=== PATIENT | male | born 1990 | race Hispanic/Latino ===

== ENCOUNTER 2018-07-02 13:52 | Emergency (ER) | payer SELFPAY ==
--- NOTE | 2018-07-02 14:15 | Emergency Department Report ---
Chief Complaint: Extremity Injury, Upper Stated Complaint: RT HAND INJURY - HPI History of Present Illness: INJURY TO HAND HIT WOOD 2 DAYS AGO VSS N/V INTACT MSE screening note: Focused history and physical exam performed. Due to findings the following was ordered: ED Disposition for MSE Condition: Stable
[2018-07-02 14:26] VITALS: BP 134/80
[2018-07-02] MEDS ORDERED: IBUPROFEN PO ONE (14:58)
--- NOTE | 2018-07-02 14:58 | Emergency Department Report ---
Upper Extremity - HPI Chief Complaint: Extremity Injury, Upper Stated Complaint: RT HAND INJURY Time Seen by Provider: 07/02/18 14:14 Upper Extremity: Right Hand (patient he reports that he accidentally hit his right hand on a piece of wood and he is having pain and swelling. Pain is 6 out of 10 and worse with movement. It feels achy. He said this happened about 4 days ago. Denies any numbness or tingling.) Occurred When: 4 Days Mechanism: Hit with Object Severity: moderate Symptoms: Yes Pain with Movement (right hand 6/10), Yes Limited Range of Movement (pain with range of motion to right hand), Yes Weakness (right hand), Yes Swelling (right hand), No Deformity, No Numbness, No Bruising/Ecchymosis, No Laceration or Abrasion Other History: This is a 27-year-old male here for pain to his right hand after he accidentally bumped into a piece of wood with his right hand. He reports that his right hand is weaker than left and his pain is 6 out of 10 but no numbness or tingling. Denies any laceration or bruising to his hand. Pain is achy worse with movement. [id number] pain medication taken without any relief. ED Review of Systems ROS: Stated complaint: RT HAND INJURY Other details as noted in HPI Constitutional: denies: chills, fever Respiratory: denies: cough, shortness of breath, wheezing Cardiovascular: denies: chest pain, palpitations, edema, syncope Gastrointestinal: denies: nausea, vomiting Musculoskeletal: joint swelling, arthralgia. denies: back pain, myalgia Skin: denies: rash Neurological: weakness (right hand). denies: headache, numbness, paresthesias, abnormal gait, vertigo ED Past Medical Hx - Past Medical History Previous Medical History?: No - Surgical History Past Surgical History?: No - Family History Family history: no significant - Social History Smoking Status: Current Every Day Smoker Substance Use Type: Alcohol - Medications Home Medications: Home Medications Medication Instructions Recorded Confirmed Last Taken Type Acetaminophen/Codeine [Tylenol 1 tab PO Q6H PRN #14 tab 07/02/18 Unknown Rx /Codeine # 3 tab] Ibuprofen [Motrin] 800 mg PO Q8HR PRN #12 tablet 07/02/18 Unknown Rx Upper Extremity Exam - Exam General: Vital signs noted. No distress. Alert and acting appropriately. This is a 27-year-old male well-nourished well-developed in no acute distress. Head and Torso: No HEENT Abnormality, No Neck Tenderness, No Chest/Lungs Abnormality, No Abdominal Tenderness, No Back Tenderness Shoulder Exam: Yes Normal Range of Motion in Shoulder, No Shoulder Tenderness, No Clavicle Tenderness, No Shoulder Deformity, No AC Joint Tenderness Arm Exam: No Arm/Humerus Tenderness, No Arm Deformity Elbow: Yes Normal Range of Motion in Elbow, No Elbow Tenderness, No Elbow Deformity Forearm: No Forearm Tenderness, No Forearm Deformity, No Pain with Pronation, No Pain with Supination Wrist: Yes Normal ROM in Wrist, No Wrist Tenderness, No Wrist Deformity, No Snuffbox Tenderness, No Pain with Axial Thumb Compression Hand: Yes Hand Tenderness (right dorsum of hand tenderness to palpate at fifth metacarpal bone area with indentation.), Yes Hand Deformity (indentation to right fifth metacarpal bone area on the right hand), No Digit Tenderness, No Normal ROM in Digit(s) (limited range of motion to right hand. He reports pain with movement), No Digit(s) Deformity, No Tendon Dysfunction CMS Exam: Yes Normal Distal Pulses (+2 and abundant pulses radial ulnar), Yes Normal Capillary Refill (less than 2 seconds), Yes Normal Distal Sensation (patient with good color, sensation and movement and temperature to extremities.), No Broken Skin ED Course Vital Signs 07/02/18 14:24 Temperature 98.1 F Pulse Rate 76 Respiratory 18 Rate Blood Pressure 134/80 [Right] O2 Sat by Pulse 98 Oximetry - Reevaluation(s) Reevaluation #1: 07/02/18 15:27 Patient given Motrin 800 mg by mouth for pain. Please see procedure note for details and splinted 07/03/18 00:33 Reevaluation #2: 07/02/18 16:01 Patient mom came to be the residential driver and he was given Percocet 5/325 mg 2 tablets by mouth for pain management. When checked and he has good color, sensation temperature and movement to fingers of right hand. - Orthopedic Splinting/Casting Injury #1 Side: right Upper Extremity Injury Location: hand Upper Extremity Immobilizer: ulnar gutter Additional Comments: Status post splint check patient has good color, movement temperature and sensation to fingers of right hand. ED Medical Decision Making - Radiology Data Radiology results: report reviewed X-ray right hand dictated radiologist's report. Please see report below. Findings [facility] [address] [place] [address] XRay Report Signed Patient: IDANIA GIL MR#: [id number] : 1990 Acct:[id number] Age/Sex: 27 / M ADM Date: 07/02/18 Loc: ED Attending Dr: Ordering Physician: RITU GIBBONS Date of Service: 07/02/18 Procedure(s): XR hand 3+V RT Accession Number(s): [id number] cc: RITU GIBBONS Fluoro Time In Minutes: FINAL REPORT EXAM: XR HAND 3+V RT HISTORY: HAND PAIN TECHNIQUE: PA, oblique and lateral radiographs of the right hand. PRIORS: None. FINDINGS: There is an acute, oblique, intra-articular fracture of the right 5th metacarpal head. There is mild anterior angulation. No dislocation. Normal mineralization. There is soft tissue swelling along the medial aspect of the right hand. IMPRESSION: Acute right 5th metacarpal fracture. Transcribed By: MG Dictated By: MICHELLE OLIVER MD Electronically Authenticated By: MICHELLE OLIVER MD Signed Date/Time: 07/02/18 1520 DD/ 18 TD/TT: 07/02/18 151 - Medical Decision Making This is a 27-year-old male here for injury to right hand 4 days ago. X-ray confirms the patient has right fifth metacarpal bone fracture. Patient was given Motrin initially for pain which did not completely relieve his pain so when his residential driver came he was given additional Percocet 5/325 mg 2 tablets by mouth shop to pain. He is referred to the procedure note for splinting. Vital signs stable he is afebrile and discharged home in stable condition with prescription for Motrin, Tylenol 3 and to follow-up with orthopedic doctor and he voiced understanding. - Differential Diagnosis fx, dislocation, contusion, MSK pain Critical care attestation.: If time is entered above; I have spent that time in minutes in the direct care of this critically ill patient, excluding procedure time. ED Disposition Clinical Impression: Arthralgia of right hand Metacarpal bone fracture Qualifiers: Encounter type: initial encounter Metacarpal bone: fifth Fracture type: closed Metacarpal location: neck Fracture alignment: nondisplaced Laterality: right Qualified Code(s): S62.366A - Nondisplaced fracture of neck of fifth metacarpal bone, right hand, initial encounter for closed fracture Disposition: TO HOME OR SELFCARE Is pt being admited?: No Does the pt Need Aspirin: No Condition: Stable Instructions: Splint Care (ED), Arthralgia (ED), Boxer Fracture (ED), RICE Therapy (ED) Additional Instructions: Please follow up with orthopedist as instructed. Call on Wednesday to schedule an appointment for visit in 2-3 days Take Tylenol 3 for severe pain but please do not drive or operate heavy machinery while taking this medication Patent Motrin for mild to moderate pain. Please see discharge instruction in Rice therapy and splint care Prescriptions: Acetaminophen/Codeine [Tylenol /Codeine # 3 tab] 1 tab PO Q6H PRN #14 tab PRN Reason: moderate to severe pain Ibuprofen [Motrin] 800 mg PO Q8HR PRN #12 tablet PRN Reason: pain Referrals: [facility] [Provider Group] - 2-3 Days ANDERSON RIVERA MD [Staff Physician] - 2-3 Days Forms: Accompanied Note, Work/School Release Form(ED)
--- NOTE | 2018-07-02 15:20 | XRay Report ---
FINAL REPORT EXAM: XR HAND 3+V RT HISTORY: HAND PAIN TECHNIQUE: PA, oblique and lateral radiographs of the right hand. PRIORS: None. FINDINGS: There is an acute, oblique, intra-articular fracture of the right 5th metacarpal head. There is mild anterior angulation. No dislocation. Normal mineralization. There is soft tissue swelling along the medial aspect of the right hand. IMPRESSION: Acute right 5th metacarpal fracture.
[2018-07-02] MEDS ORDERED: PERCOCET 5/325 PO ONE (15:52)
== END 2018-07-02 15:59 | disposition home or self-care (01) ==
LOC: ED 13:52
DX: S62.396A Other fracture of fifth metacarpal bone, right hand, initial encounter for closed fracture (principal); F17.200 Nicotine dependence, unspecified, uncomplicated; W22.8XXA Striking against or struck by other objects, initial encounter; Y93.89 Activity, other specified; Y92.89 Other specified places as the place of occurrence of the external cause; Y99.8 Other external cause status

== ENCOUNTER 2018-07-23 18:16 | Emergency (ER) | payer OTHER ==
[2018-07-23 18:30] VITALS: BP 168/96
--- NOTE | 2018-07-23 18:46 | Emergency Department Report ---
Chief Complaint: Extremity Injury, Lower Stated Complaint: L KNEE/HAND INJURY Time Seen by Provider: 07/23/18 18:44 - HPI History of Present Illness: pt presents with left hand and left knee pain that began yesterday he states he was playing basketball on the concrete and tripped and fell and two people landed on his left knee he states he has been ambulatory with a limp he is unsure of his last tetanus he has abrasions to bilateral LE - Exam Vital Signs: Vital Signs 07/23/18 07/23/18 18:29 18:31 Temperature 98.2 F 98.2 F Pulse Rate 99 H 96 H Respiratory 20 20 Rate Blood Pressure 168/96 Blood Pressure 168/96 [Right] O2 Sat by Pulse 99 99 Oximetry MSE screening note: Focused history and physical exam performed. Due to findings the following was ordered: XR left knee and left hand ED Disposition for MSE Condition: Stable
--- NOTE | 2018-07-23 20:43 | XRay Report ---
PROCEDURE: XR KNEE 1-2V LT HISTORY: fall, left knee pain FINDINGS: AP and lateral views of the left knee were acquired and demonstrate no fracture or malalign ment of the left knee. No joint effusion is seen. IMPRESSION: No fracture is seen in the left knee This document is electronically signed by Son Choudhury MD., July 23 2018 08:41:28 PM ET
--- NOTE | 2018-07-23 20:44 | XRay Report ---
PROCEDURE: XR HAND 2V LT HISTORY: fall, left hand pain FINDINGS: PA, lateral and oblique views of the left hand were acquired and demonstrate an acute-appea ring fracture of the distal metaphysis of the fifth metacarpal, in radial angulation. IMPRESSION: Acute fracture of distal metaphysis of fifth metacarpal This document is electronically signed by Son Choudhury MD., July 23 2018 08:42:28 PM ET
[2018-07-23] MEDS ORDERED: TRIPLE ANTIBIOTIC TP ONE (21:40)
[2018-07-23] MEDS ORDERED: NORCO 5/325 PO ONE (22:28)
[2018-07-23] MEDS ORDERED: NORCO 5/325 ONE (22:28)
--- NOTE | 2018-07-23 22:40 | Emergency Department Report ---
ED General Adult HPI - General Chief complaint: Extremity Injury, Lower Stated complaint: L KNEE/HAND INJURY Time Seen by Provider: 07/23/18 18:44 Source: patient Mode of arrival: Ambulatory Limitations: No Limitations - History of Present Illness Initial comments: Clarice Silvestre is much department complaining of right knee pain and right left hand playing at the playing street football on concrete. He fell down striking his hand on the concrete and striking his knee across concrete last night. 7 dulls problem pain since the injury and position was department for evaluation of the of the injuries. Reports no numbness or tingling. No fever chills no head trauma, no loss of consciousness. No nausea, vomiting. Radiation: non-radiation Severity scale (0 -10): 10 Consistency: constant Improves with: none Worsens with: none Associated Symptoms: denies: chest pain, cough, headaches, loss of appetite, malaise, shortness of breath, syncope, weakness Treatments Prior to Arrival: none - Related Data Previous Rx's Medication Instructions Recorded Last Taken Type Acetaminophen/Codeine [Tylenol 1 tab PO Q6H PRN #14 tab 07/02/18 Unknown Rx /Codeine # 3 tab] Ibuprofen [Motrin] 800 mg PO Q8HR PRN #12 tablet 07/02/18 Unknown Rx Acetaminophen/Codeine [Tylenol #3] 1 tab PO Q6H PRN #15 tab 07/23/18 Unknown Rx Allergies Allergy/AdvReac Type Severity Reaction Status Date / Time No Known Allergies Allergy Verified 07/23/18 18:17 ED Review of Systems ROS: Stated complaint: L KNEE/HAND INJURY Other details as noted in HPI Constitutional: denies: chills, fever Eyes: denies: eye pain, eye discharge, vision change ENT: denies: ear pain, throat pain Respiratory: denies: cough, shortness of breath, wheezing Cardiovascular: denies: chest pain, palpitations Endocrine: no symptoms reported Gastrointestinal: denies: abdominal pain, nausea, diarrhea Genitourinary: denies: urgency, dysuria Musculoskeletal: denies: back pain, joint swelling, arthralgia Skin: other (abrasions). denies: rash, lesions Neurological: denies: headache, weakness, paresthesias Psychiatric: denies: anxiety, depression Hematological/Lymphatic: denies: easy bleeding, easy bruising ED Past Medical Hx - Past Medical History Previous Medical History?: No - Surgical History Past Surgical History?: No - Social History Smoking Status: Never Smoker Substance Use Type: Marijuana - Medications Home Medications: Home Medications Medication Instructions Recorded Confirmed Last Taken Type Acetaminophen/Codeine [Tylenol 1 tab PO Q6H PRN #14 tab 07/02/18 Unknown Rx /Codeine # 3 tab] Ibuprofen [Motrin] 800 mg PO Q8HR PRN #12 tablet 07/02/18 Unknown Rx Acetaminophen/Codeine [Tylenol #3] 1 tab PO Q6H PRN #15 tab 07/23/18 Unknown Rx ED Physical Exam - General Limitations: No Limitations General appearance: alert, in no apparent distress - Head Head exam: Present: atraumatic, normocephalic - Eye Eye exam: Present: normal appearance, PERRL, EOMI - ENT ENT exam: Present: normal exam, normal orophraynx, mucous membranes moist - Neck Neck exam: Present: normal inspection - Respiratory Respiratory exam: Present: normal lung sounds bilaterally. Absent: respiratory distress - Cardiovascular Cardiovascular Exam: Present: regular rate, normal rhythm. Absent: systolic murmur, diastolic murmur, rubs, gallop - GI/Abdominal GI/Abdominal exam: Present: soft, normal bowel sounds - Rectal Rectal exam: Present: deferred - Extremities Exam Extremities exam: Present: normal inspection, other (I large abrasion to the right lower extremity and abrasion to the right knee as well. 4. Range of motion is noted. There is some tenderness with palpation around the abrasion sites but no dislocation or effusion noted. Fossa left hand. There is some tenderness along the base of the fifth metacarpal. His facility rehab director strength history of 5 due to pain. There is minimal swelling. Capillary refills are brisk.) - Back Exam Back exam: Present: normal inspection, full ROM. Absent: CVA tenderness (R), CVA tenderness (L) - Neurological Exam Neurological exam: Present: alert, oriented X3, CN II-XII intact, normal gait - Psychiatric Psychiatric exam: Present: normal affect, normal mood. Absent: flat affect, manic - Skin Skin exam: Present: warm, dry, intact, normal color. Absent: rash ED Course Vital Signs 07/23/18 07/23/18 18:29 18:31 Temperature 98.2 F 98.2 F Pulse Rate 99 H 96 H Respiratory 20 20 Rate Blood Pressure 168/96 Blood Pressure 168/96 [Right] O2 Sat by Pulse 99 99 Oximetry Critical care attestation.: If time is entered above; I have spent that time in minutes in the direct care of this critically ill patient, excluding procedure time. ED Disposition Clinical Impression: Metacarpal bone fracture Disposition: DC- TO HOME OR SELFCARE Is pt being admited?: No Does the pt Need Aspirin: No Condition: Stable Instructions: Boxer Fracture (ED) Prescriptions: Acetaminophen/Codeine [Tylenol #3] 1 tab PO Q6H PRN #15 tab PRN Reason: Pain Referrals: [facility] NIDA [Primary Care Provider] - 3-5 Days ANDERSON RIVERA MD [Staff Physician] - 3-5 Days
== END 2018-07-23 22:50 | disposition home or self-care (01) ==
LOC: ED 18:16
DX: S62.317A Displaced fracture of base of fifth metacarpal bone, left hand, initial encounter for closed fracture (principal); S80.212A Abrasion, left knee, initial encounter; W22.8XXA Striking against or struck by other objects, initial encounter; Y93.61 Activity, american tackle football; Y92.488 Other paved roadways as the place of occurrence of the external cause; Y99.8 Other external cause status
CPT/HCPCS: A6250

== ENCOUNTER 2020-04-23 10:29 | Emergency (ER) | payer SELFPAY ==
[2020-04-23 11:05] VITALS: BP 165/87
--- NOTE | 2020-04-23 12:20 | Event Note ---
ED Screening Note ED Screening Note: n/v/d two days ago no sick contacts no recent travel no fever states only abd discomfort after frequent vomiting PMHx none no allergies to meds +ETOH every other day non smoker +marijuana This initial assessment/diagnostic orders/clinical plan/treatment(s) is/are subject to change based on patients health status, clinical progression and re- assessment by fellow clinical providers in the ED. Further treatment and workup at subsequent clinical providers discretion. Patient/guardian urged not to elope from the ED as their condition may be serious if not clinically assessed and managed. Initial orders include: labs, UA
[2020-04-23 12:53] LABS: Basophils % (Auto) 0.5 % (0.0-1.8); Eosinophils # (Auto) 0.1 K/mm3 (0.0-0.4); Eosinophils % (Auto) 1.2 % (0.0-4.3); Hematocrit 48.5 % (35.5-45.6); Hemoglobin 16.6 gm/dl (11.8-15.2); Lymphocytes # (Auto) 1.8 K/mm3 (1.2-5.4); Lymphocytes % (Auto) 20.3 % (13.4-35.0); Mean Corpuscular HGB Conc 34 % (32-34); Mean Corpuscular Volume 91 fl (84-94); Monocytes # (Auto) 0.8 K/mm3 (0.0-0.8); Monocytes % (Auto) 8.8 % (0.0-7.3); Platelet Count 219 K/mm3 (140-440); Red Blood Count 5.33 M/mm3 (3.65-5.03); Red Cell Distribution Width 11.8 % (13.2-15.2)
[2020-04-23 12:53] LABS: Bilirubin,Urine NEG (Negative); Blood,Urine NEG (Negative); Color,Urine Yellow (Yellow); Mucus,Urine FEW /HPF; Protein,Urine <15 mg/dL mg/dL (Negative); Urobilinogen,Urine < 2.0 mg/dL (<2.0); WBC,Urine < 1.0 /HPF (0.0-6.0)
[2020-04-23 13:17] LABS: Alanine Aminotransferase 44 units/L (7-56); Albumin 4.4 g/dL (3.9-5); BUN/Creatinine Ratio 14; Blood Urea Nitrogen 11 mg/dL (9-20); Calcium 9.9 mg/dL (8.4-10.2); Hemolysis Index 9
[2020-04-23] MEDS ORDERED: ONDANSETRON 4 MG ODT TAB PO ONE (13:18)
--- NOTE | 2020-04-23 13:33 | Emergency Department Report ---
ED N/V/D HPI - General Chief complaint: Nausea/Vomiting/Diarrhea Stated complaint: VOMITING Time Seen by Provider: 04/23/20 12:18 Source: patient Mode of arrival: Ambulatory Limitations: No Limitations - History of Present Illness Initial comments: This is a 29-year-old male presents the emergency department chief complaint of nausea, vomiting, diarrhea over the past 2 days. He denies any bloody or bilious vomiting, bloody stools, melena, fever, chills, night sweats, headache, dizziness, blurry vision, nausea, vomit, diarrhea, chest pain, shortness of breath. He reports he has had some intermittent abdominal cramping. He states the main reason he is here is because he has intense nausea. He denies any known past medical history, current medications or known allergies medications. - Related Data Previous Rx's Medication Instructions Recorded Last Taken Type Acetaminophen/Codeine [Tylenol 1 tab PO Q6H PRN #14 tab 07/02/18 Unknown Rx /Codeine # 3 tab] Ibuprofen [Motrin] 800 mg PO Q8HR PRN #12 tablet 07/02/18 Unknown Rx Acetaminophen/Codeine [Tylenol #3] 1 tab PO Q6H PRN #15 tab 07/23/18 Unknown Rx Dicyclomine [Bentyl] 10 mg PO QID #20 capsule 04/23/20 Unknown Rx Ondansetron [Zofran Odt] 4 mg PO Q8HR #30 tab.rapdis 04/23/20 Unknown Rx Allergies Allergy/AdvReac Type Severity Reaction Status Date / Time No Known Allergies Allergy Verified 07/23/18 18:17 ED Review of Systems ROS: Stated complaint: VOMITING Other details as noted in HPI Comment: All other systems reviewed and negative Constitutional: denies: chills, fever Eyes: denies: eye pain, eye discharge, vision change ENT: denies: ear pain, throat pain Respiratory: denies: cough, shortness of breath, wheezing Cardiovascular: denies: chest pain, palpitations Endocrine: no symptoms reported Gastrointestinal: as per HPI, abdominal pain, nausea, vomiting, diarrhea Genitourinary: denies: urgency, dysuria Musculoskeletal: denies: back pain, joint swelling, arthralgia Skin: denies: rash, lesions Neurological: denies: headache, weakness, paresthesias Psychiatric: denies: anxiety, depression Hematological/Lymphatic: denies: easy bleeding, easy bruising ED Past Medical Hx - Past Medical History Previous Medical History?: No - Surgical History Past Surgical History?: Yes Additional Surgical History: oral surgery. tubes placed as a child - Social History Smoking Status: Never Smoker Substance Use Type: Marijuana - Medications Home Medications: Home Medications Medication Instructions Recorded Confirmed Last Taken Type Acetaminophen/Codeine [Tylenol 1 tab PO Q6H PRN #14 tab 07/02/18 Unknown Rx /Codeine # 3 tab] Ibuprofen [Motrin] 800 mg PO Q8HR PRN #12 tablet 07/02/18 Unknown Rx Acetaminophen/Codeine [Tylenol #3] 1 tab PO Q6H PRN #15 tab 07/23/18 Unknown Rx Dicyclomine [Bentyl] 10 mg PO QID #20 capsule 04/23/20 Unknown Rx Ondansetron [Zofran Odt] 4 mg PO Q8HR #30 tab.rapdis 04/23/20 Unknown Rx ED Physical Exam - General Limitations: No Limitations General appearance: alert, in no apparent distress - Head Head exam: Present: atraumatic, normocephalic - Eye Eye exam: Present: normal appearance, PERRL, EOMI Pupils: Present: normal accommodation - ENT ENT exam: Present: normal exam, normal orophraynx, mucous membranes moist - Neck Neck exam: Present: normal inspection, full ROM. Absent: tenderness, meningismus - Respiratory Respiratory exam: Present: normal lung sounds bilaterally. Absent: respiratory distress, wheezes, rales, rhonchi, stridor - Cardiovascular Cardiovascular Exam: Present: regular rate, normal rhythm, normal heart sounds. Absent: systolic murmur, diastolic murmur, rubs, gallop - GI/Abdominal GI/Abdominal exam: Present: soft, normal bowel sounds, other (Negative reverse point tenderness, negative Spears sign, no rebound or guarding). Absent: distended, tenderness, guarding, rebound, rigid - Rectal Rectal exam: Present: deferred - Extremities Exam Extremities exam: Present: normal inspection, full ROM, normal capillary refill. Absent: tenderness, calf tenderness - Back Exam Back exam: Present: normal inspection, full ROM. Absent: tenderness, CVA tenderness (R), CVA tenderness (L) - Neurological Exam Neurological exam: Present: alert, oriented X3, CN II-XII intact, normal gait - Psychiatric Psychiatric exam: Present: normal affect, normal mood - Skin Skin exam: Present: warm, dry, intact, normal color. Absent: rash ED Course Vital Signs 04/23/20 11:03 Temperature 98.4 F Pulse Rate 63 Respiratory 18 Rate Blood Pressure 165/87 [Right] O2 Sat by Pulse 99 Oximetry ED Medical Decision Making - Lab Data Result diagrams: 04/23/20 12:29 04/23/20 12:29 Critical care attestation.: If time is entered above; I have spent that time in minutes in the direct care of this critically ill patient, excluding procedure time. ED Disposition Clinical Impression: Nausea vomiting and diarrhea Disposition: - TO HOME OR SELFCARE Is pt being admited?: No Condition: Stable Instructions: Nausea and Vomiting, Adult, Food Choices to Help Relieve Diarrhea, Adult Prescriptions: Dicyclomine [Bentyl] 10 mg PO QID #20 capsule Ondansetron [Zofran Odt] 4 mg PO Q8HR #30 tab.topherdis Referrals: PRIMARY MD KIMANI [Primary Care Provider] - 3-5 Days SAUL SANTANA MD [Staff Physician] - 3-5 Days [facility] [Provider Group] - 3-5 Days Forms: Work/School Release Form(ED) Time of Disposition: 13:51
== END 2020-04-23 14:02 | disposition home or self-care (01) ==
LOC: ED 10:29
DX: R11.2 Nausea with vomiting, unspecified (principal); R19.7 Diarrhea, unspecified; F12.10 Cannabis abuse, uncomplicated; Z98.890 Other specified postprocedural states; Z79.899 Other long term (current) drug therapy
CPT/HCPCS: 36415; 80053; 81001; 83690; 85025; 99283; Q0162

== ENCOUNTER 2021-01-02 16:36 | Emergency (ER) | payer SELFPAY ==
--- NOTE | 2021-01-02 18:56 | Event Note ---
ED Screening Note ED Screening Note: N/V/D that began three days ago no abd pain no sick contact no travel no recent abx no water from a different source or recent camping no fever no cough no SOB PMhx none no allergies to meds no past abd surgical hx This initial assessment/diagnostic orders/clinical plan/treatment(s) is/are subject to change based on patients health status, clinical progression and re- assessment by fellow clinical providers in the ED. Further treatment and workup at subsequent clinical providers discretion. Patient/guardian urged not to elope from the ED as their condition may be serious if not clinically assessed and managed. Initial orders include: labs, ua
[2021-01-02] MEDS ORDERED: ONDANSETRON 4 MG ODT TAB PO ONE (18:57)
[2021-01-02] MEDS ORDERED: SODIUM CHLORIDE 0.9% 1000 ML 1,000 ML IV ONE (19:43)
[2021-01-02] MEDS ORDERED: ONDANSETRON 4 MG/2 ML INJ IV ONE (19:43)
[2021-01-02 19:55] LABS: Basophils # (Auto) 0.1 K/mm3 (0.0-0.1); Basophils % (Auto) 0.6 % (0.0-1.8); Eosinophils % (Auto) 0.1 % (0.0-4.3); Hematocrit 53.2 % (35.5-45.6); Hemoglobin 18.6 gm/dl (11.8-15.2); Lymphocytes # (Auto) 2.1 K/mm3 (1.2-5.4); Lymphocytes % (Auto) 17.6 % (13.4-35.0); Mean Corpuscular HGB Conc 35 % (32-34); Mean Corpuscular Volume 92 fl (84-94); Monocytes % (Auto) 8.3 % (0.0-7.3); Platelet Count 281 K/mm3 (140-440); Red Blood Count 5.82 M/mm3 (3.65-5.03); Red Cell Distribution Width 12.6 % (13.2-15.2)
[2021-01-02 20:09] LABS: Alanine Aminotransferase 75 units/L (7-56); Albumin 4.7 g/dL (3.9-5); BUN/Creatinine Ratio 14; Blood Urea Nitrogen 18 mg/dL (9-20); Calcium 9.3 mg/dL (8.4-10.2); Hemolysis Index 15
[2021-01-02 20:59] LABS: Bilirubin,Urine NEG (Negative); Blood,Urine SM (Negative); Color,Urine Yellow (Yellow); Mucus,Urine FEW /HPF; Urobilinogen,Urine < 2.0 mg/dL (<2.0); WBC,Urine < 1.0 /HPF (0.0-6.0)
--- NOTE | 2021-01-02 21:25 | Cat Scan Report ---
CT ABDOMEN AND PELVIS WITH CONTRAST INDICATION / CLINICAL INFORMATION: n/v x3days [id number] 100ml. TECHNIQUE: Axial CT images were obtained through the abdomen and pelvis after 100 mL's of Omnipaque [address] scans at this location are performed using CT dose reduction for ALARA by christie fontaine of automated exposure control. COMPARISON: None available. FINDINGS: LOWER CHEST: No significant abnormality. AORTA / ARTERIES: No significant abnormality. IVC / VEINS: No significant abnormality. LYMPH NODES: No significant adenopathy. COLON: Diverticulosis without acute inflammation. There is fatty infiltration noted involving the col onic wall. APPENDIX: No significant abnormality. STOMACH / SMALL BOWEL: There is fatty infiltration involving the gastric antral wall and duodenal wal l PERITONEUM: No free fluid. No free air. No fluid collection. LIVER: No significant abnormality. GALLBLADDER: No significant abnormality. BILE DUCTS: No significant abnormality. PANCREAS: No significant abnormality. SPLEEN: No significant abnormality. ADRENALS: No significant abnormality. RIGHT KIDNEY / URETER: There is an exophytic cyst involving the right upper pole. LEFT KIDNEY / URETER: No significant abnormality. URINARY BLADDER: Incompletely distended but otherwise unremarkable REPRODUCTIVE ORGANS: No significant abnormality. SKELETAL SYSTEM: No significant abnormality. ADDITIONAL FINDINGS: None. IMPRESSION: 1. Fatty infiltration involving portions of the colon, duodenum and stomach. This nonspecific but may be seen with inflammatory bowel disease. 2. Diverticulosis without diverticulitis. Signer Name: Aldair Moreno DO Signed: 01/02/2021 9:20 PM Workstation Name: [id number]
--- NOTE | 2021-01-02 21:55 | Emergency Department Report ---
ED N/V/D HPI - General Chief complaint: Nausea/Vomiting/Diarrhea Stated complaint: VOMITING 3 DAYS Time Seen by Provider: 01/02/21 18:55 Source: patient Mode of arrival: Ambulatory Limitations: No Limitations - History of Present Illness Initial comments: This is a 30-year-old male nontoxic, well nourished in appearance, no acute signs of distress presents to the ED with c/o of nausea and vomiting 3 days. Patient describes vomiting as food content. Patient denies any abdominal pain, chest pain, short of breath, fever, chills, headache, stiff neck, numbness or tingling. Patient denies any diarrhea or constipation. Denies any blood in stool. Patient denies any recent travels. Patient denies any drug allergies significant past medical history. MD complaint: nausea, vomiting -: days(s) Associated Abdominal Pain: No Radiation: none Severity: mild Pain Scale: 0 Consistency: constant Improves with: none Worsens with: none Associated Symptoms: nausea/vomiting. denies: myalgias, chest pain, cough, diaphoresis, fever/chills, headaches, loss of appetite, malaise, rash, dysuria, shortness of breath, syncope, weakness - Related Data Previous Rx's Medication Instructions Recorded Last Taken Type Acetaminophen/Codeine [Tylenol 1 tab PO Q6H PRN #14 tab 07/02/18 Unknown Rx /Codeine # 3 tab] Ibuprofen [Motrin] 800 mg PO Q8HR PRN #12 tablet 07/02/18 Unknown Rx Acetaminophen/Codeine [Tylenol #3] 1 tab PO Q6H PRN #15 tab 07/23/18 Unknown Rx Dicyclomine [Bentyl] 10 mg PO QID #20 capsule 04/23/20 Unknown Rx Ondansetron [Zofran Odt] 4 mg PO Q8HR #30 tab.rapdis 04/23/20 Unknown Rx Ondansetron [Zofran Odt] 4 mg PO Q8HR PRN #12 tab.rapdis 01/02/21 Unknown Rx Allergies Allergy/AdvReac Type Severity Reaction Status Date / Time No Known Allergies Allergy Verified 07/23/18 18:17 ED Review of Systems ROS: Stated complaint: VOMITING 3 DAYS Other details as noted in HPI Comment: All other systems reviewed and negative Constitutional: denies: chills, fever Eyes: denies: eye pain, eye discharge, vision change ENT: denies: ear pain, throat pain Respiratory: denies: cough, shortness of breath, wheezing Cardiovascular: denies: chest pain, palpitations Endocrine: no symptoms reported Gastrointestinal: nausea, vomiting. denies: abdominal pain, diarrhea, constipation, hematemesis, melena, hematochezia Genitourinary: denies: urgency, dysuria Musculoskeletal: denies: back pain, joint swelling, arthralgia Skin: denies: rash, lesions Neurological: denies: headache, weakness, paresthesias Psychiatric: denies: anxiety, depression Hematological/Lymphatic: denies: easy bleeding, easy bruising ED Past Medical Hx - Surgical History Additional Surgical History: oral surgery. tubes placed as a child - Social History Smoking Status: Never Smoker Substance Use Type: Marijuana - Medications Home Medications: Home Medications Medication Instructions Recorded Confirmed Last Taken Type Acetaminophen/Codeine [Tylenol 1 tab PO Q6H PRN #14 tab 07/02/18 Unknown Rx /Codeine # 3 tab] Ibuprofen [Motrin] 800 mg PO Q8HR PRN #12 tablet 07/02/18 Unknown Rx Acetaminophen/Codeine [Tylenol #3] 1 tab PO Q6H PRN #15 tab 07/23/18 Unknown Rx Dicyclomine [Bentyl] 10 mg PO QID #20 capsule 04/23/20 Unknown Rx Ondansetron [Zofran Odt] 4 mg PO Q8HR #30 tab.rapdis 04/23/20 Unknown Rx Ondansetron [Zofran Odt] 4 mg PO Q8HR PRN #12 tab.rapdis 01/02/21 Unknown Rx ED Physical Exam - General Limitations: No Limitations General appearance: alert, in no apparent distress - Head Head exam: Present: atraumatic, normocephalic - Eye Eye exam: Present: normal appearance - Neck Neck exam: Present: normal inspection, full ROM. Absent: lymphadenopathy - Respiratory Respiratory exam: Present: normal lung sounds bilaterally. Absent: respiratory distress, wheezes, rales, rhonchi, stridor, chest wall tenderness, accessory muscle use, decreased breath sounds, prolonged expiratory - Cardiovascular Cardiovascular Exam: Present: regular rate, normal rhythm, normal heart sounds. Absent: irregular rhythm, systolic murmur, diastolic murmur, rubs, gallop - GI/Abdominal GI/Abdominal exam: Present: soft, normal bowel sounds. Absent: distended, tenderness, guarding, rebound, rigid, diminished bowel sounds - Extremities Exam Extremities exam: Present: normal inspection, full ROM - Back Exam Back exam: Present: normal inspection, full ROM. Absent: tenderness, CVA tenderness (R), CVA tenderness (L), muscle spasm, paraspinal tenderness, vertebral tenderness, rash noted - Neurological Exam Neurological exam: Present: alert, oriented X3, normal gait - Psychiatric Psychiatric exam: Present: normal affect, normal mood - Skin Skin exam: Present: warm, dry, intact, normal color. Absent: rash ED Course Vital Signs 01/02/21 01/02/21 18:38 21:57 Temperature 98.9 F 98.6 F Pulse Rate 100 H 89 Respiratory 20 20 Rate Blood Pressure 184/120 O2 Sat by Pulse 99 100 Oximetry - Reevaluation(s) Reevaluation #1: 01/02/21 21:52 Patient is speaking in full sentences with no signs of distress noted. - Consultations Consultation #1: 01/02/21 21:53 Patient has been consulted with Augusta Patel about patient history, physical exam, and labs/CT results and agrees to discharge plan of care. ED Medical Decision Making - Lab Data Result diagrams: 01/02/21 19:12 01/02/21 19:12 Lab Results 01/02/21 01/02/21 01/02/21 Range/Units 19:12 19:12 19:12 WBC 12.0 H (4.5-11.0) K/mm3 RBC 5.82 H (3.65-5.03) M/mm3 Hgb 18.6 H (11.8-15.2) gm/dl Hct 53.2 H (35.5-45.6) % MCV 92 (84-94) fl MCH 32 (28-32) pg MCHC 35 H (32-34) % RDW 12.6 L (13.2-15.2) % Plt Count 281 (140-440) K/mm3 Lymph % (Auto) 17.6 (13.4-35.0) % Lee % (Auto) 8.3 H (0.0-7.3) % Eos % (Auto) 0.1 (0.0-4.3) % Baso % (Auto) 0.6 (0.0-1.8) % Lymph # (Auto) 2.1 (1.2-5.4) K/mm3 Lee # (Auto) 1.0 H (0.0-0.8) K/mm3 Eos # (Auto) 0.0 (0.0-0.4) K/mm3 Baso # (Auto) 0.1 (0.0-0.1) K/mm3 Seg Neutrophils % 73.4 H (40.0-70.0) % Seg Neutrophils # 8.8 H (1.8-7.7) K/mm3 VBG pH 7.434 H (7.320-7.420) Sodium 141 (137-145) mmol/L Potassium 3.7 (3.6-5.0) mmol/L Chloride 95.1 L (98-107) mmol/L Carbon Dioxide 27 (22-30) mmol/L Anion Gap 23 mmol/L BUN 18 (9-20) mg/dL Creatinine 1.3 (0.8-1.3) mg/dL Estimated GFR > 60 ml/min BUN/Creatinine Ratio 14 % Glucose 161 H (75-100) mg/dL Calcium 9.3 (8.4-10.2) mg/dL Total Bilirubin 1.60 H (0.1-1.2) mg/dL AST 104 H (5-40) units/L ALT 75 H (7-56) units/L Alkaline Phosphatase 91 (35-129) units/L Total Protein 8.3 H (6.3-8.2) g/dL Albumin 4.7 (3.9-5) g/dL Albumin/Globulin Ratio 1.3 % Lipase 56 (13-60) units/L Urine Color (Yellow) Urine Turbidity (Clear) Urine pH (5.0-7.0) Ur Specific [place] (1.003-1.030) Urine Protein (Negative) mg/dL Urine Glucose (UA) (Negative) mg/dL Urine Ketones (Negative) mg/dL Urine Blood (Negative) Urine Nitrite (Negative) Urine Bilirubin (Negative) Urine Urobilinogen (<2.0) mg/dL Ur Leukocyte Esterase (Negative) Urine WBC (Auto) (0.0-6.0) /HPF Urine RBC (Auto) (0.0-6.0) /HPF Urine Mucus /HPF 01/02/21 Range/Units 20:15 WBC (4.5-11.0) K/mm3 RBC (3.65-5.03) M/mm3 Hgb (11.8-15.2) gm/dl Hct (35.5-45.6) % MCV (84-94) fl MCH (28-32) pg MCHC (32-34) % RDW (13.2-15.2) % Plt Count (140-440) K/mm3 Lymph % (Auto) (13.4-35.0) % Lee % (Auto) (0.0-7.3) % Eos % (Auto) (0.0-4.3) % Baso % (Auto) (0.0-1.8) % Lymph # (Auto) (1.2-5.4) K/mm3 Lee # (Auto) (0.0-0.8) K/mm3 Eos # (Auto) (0.0-0.4) K/mm3 Baso # (Auto) (0.0-0.1) K/mm3 Seg Neutrophils % (40.0-70.0) % Seg Neutrophils # (1.8-7.7) K/mm3 VBG pH (7.320-7.420) Sodium (137-145) mmol/L Potassium (3.6-5.0) mmol/L Chloride (98-107) mmol/L Carbon Dioxide (22-30) mmol/L Anion Gap mmol/L BUN (9-20) mg/dL Creatinine (0.8-1.3) mg/dL Estimated GFR ml/min BUN/Creatinine Ratio % Glucose (75-100) mg/dL Calcium (8.4-10.2) mg/dL Total Bilirubin (0.1-1.2) mg/dL AST (5-40) units/L ALT (7-56) units/L Alkaline Phosphatase (35-129) units/L Total Protein (6.3-8.2) g/dL Albumin (3.9-5) g/dL Albumin/Globulin Ratio % Lipase (13-60) units/L Urine Color Yellow (Yellow) Urine Turbidity Clear (Clear) Urine pH 6.0 (5.0-7.0) Ur Specific [place] 1.030 (1.003-1.030) Urine Protein 30 mg/dl (Negative) mg/dL Urine Glucose (UA) 50 (Negative) mg/dL Urine Ketones Neg (Negative) mg/dL Urine Blood Sm (Negative) Urine Nitrite Neg (Negative) Urine Bilirubin Neg (Negative) Urine Urobilinogen < 2.0 (<2.0) mg/dL Ur Leukocyte Esterase Neg (Negative) Urine WBC (Auto) < 1.0 (0.0-6.0) /HPF Urine RBC (Auto) 2.0 (0.0-6.0) /HPF Urine Mucus Few /HPF - Radiology Data [facility] [address] [place] [address] Cat Scan Report Signed Patient: IDANIA GIL MR#: [id number] : 1990 Acct:[id number] Age/Sex: 30 / M ADM Date: 01/02/21 Loc: ED Attending Dr: Ordering Physician: PARMJIT HAMILTON NP Date of Service: 01/02/21 Procedure(s): CT abdomen pelvis w con Accession Number(s): [id number] cc: PARMJIT HAMILTON NP CT ABDOMEN AND PELVIS WITH CONTRAST INDICATION / CLINICAL INFORMATION: n/v x3days [id number] 100ml. TECHNIQUE: Axial CT images were obtained through the abdomen and pelvis after 100 mL's of Omnipaque [address] scans at this location are performed using CT dose reduction for ALARA by means of automated exposure control. COMPARISON: None available. FINDINGS: LOWER CHEST: No significant abnormality. AORTA / ARTERIES: No significant abnormality. IVC / VE INS: No significant abnormality. LYMPH NODES: No significant adenopathy. COLON: Diverticulosis without acute inflammation. There is fatty infiltration noted involving the colonic wall. APPENDIX: No significant abnormality. STOMACH / SMALL BOWEL: There is fatty infiltration involving the gastric antral wall and duodenal wall PERITONEUM: No free fluid. No free air. No fluid collection. LIVER: No significant abnormality. GALLBLADDER: No significant abnormality. BILE DUCTS: No significant abnormality. PANCREAS: No significant abnormality. SPLEEN: No significant abnormality. ADRENALS: No significant abnormality. RIGHT KIDNEY / URETER: There is an exophytic cyst involving the right upper pole. LEFT KIDNEY / URETER: No significant abnormality. URINARY BLADDER: Incompletely distended but otherwise unremarkable REPRODUCTIVE ORGANS: No significant abnormality. SKELETAL SYSTEM: No significant abnormality. ADDITIONAL FINDINGS: None. IMPRESSION: 1. Fatty infiltration involving portions of the colon, duodenum and stomach. This nonspecific but may be seen with inflammatory bowel disease. 2. Diverticulosis without diverticulitis. Signer Name: Aldair Limon DO Signed: 01/02/2021 9:20 PM Workstation Name: [id number] Transcribed By: KEISHA Dictated By: ALDAIR LIMON DO Electronically Authenticated By: ALDAIR LIMON DO Signed Date/Time: 01/02/212119 DD/ 13 TD/TT: - Medical Decision Making This is a 30-year-old male that presents with IBS and diverticulosis. Patient is stable and was examined by me. There is no abdominal tenderness. Negative signs of symptoms of appendicitis, cholecystitis or acute abdomen. Labs ob tained. UA obtained. CT with contrast of abdomen obtained and dictated by the radiologist. Patient is notified of the report with no questions noted by the patient. Vital signs are stable prior to discharge. Patient received Zofran and 1L Normal saline in the ED which patient stated symptoms has resovled and subsided. A by mouth challenge has been obtained and patient tolerated well with no nausea vomiting. Patient was also instructed to Follow-up with a primary care and head of strategy doctor in 3-5 days or if symptoms worsen and continue return to emergency room as soon as possible. At time of discharge, the patient does not seem toxic or ill in appearance. No acute signs of dist ress noted. Patient agrees to discharge treatment plan of care. No further questions noted by the patient. Critical care attestation.: If time is entered above; I have spent that time in minutes in the direct care of this critically ill patient, excluding procedure time. ED Disposition Clinical Impression: Diverticulosis IBS (irritable bowel syndrome) Qualifiers: Irritable bowel syndrome type: without diarrhea Qualified Code(s): K58.9 - Irritable bowel syndrome without diarrhea Disposition: HOME / SELF CARE / HOMELESS Is pt being admited?: No Does the pt Need Aspirin: No Condition: Stable Instructions: Diet for Irritable Bowel Syndrome, Diverticulosis Additional Instructions: Follow-up with a primary care and head of strategy doctor in 3-5 days or if symptoms worsen and continue return to emergency room as soon as possible. Prescriptions: Ondansetron [Zofran Odt] 4 mg PO Q8HR PRN #12 tab.rapdis PRN Reason: Nausea Referrals: PRIMARY CAREMD [Referring] - 3-5 Days SAUL SANTANA MD [Staff Physician] - 3-5 Days [facility] [Provider Group] - 3-5 Days Forms: Work/School Release Form(ED) Time of Disposition: 21:55
[2021-01-02 22:25] VITALS: BP 159/109
== END 2021-01-02 22:10 | disposition home or self-care (01) ==
LOC: ED 16:36
DX: K58.9 Irritable bowel syndrome, unspecified (principal); K57.90 Diverticulosis of intestine, part unspecified, without perforation or abscess without bleeding; F12.90 Cannabis use, unspecified, uncomplicated; Z79.899 Other long term (current) drug therapy; Z98.890 Other specified postprocedural states
CPT/HCPCS: 36415; 74177; 80053; 81001; 82805; 83690; 85025; 96361; 96374; 99284; J2405; J7030; Q9967; Q0162